=== PATIENT | female | born 1970 | race African-American/Black ===

== ENCOUNTER → 2017-02-25 | Outpatient (CLI) | payer BC ==
[~2017-02-25] MED LIST: LYSTEDA650 MG PO; PROVERA5 MG PO
--- NOTE | ~2017-02-25 | SLE ---
[facility] [address] [place] [address] POLYSOMNOGRAPHY STUDY Name: LO FELIX Room #: REG William ..#: [id number] Admission: 02/25/17 Attend Phys: Dylan Young MD Discharge: Date of : 70 Report #: [id number] THIS REPORT FOR: //name// CC: [facility] physician/PCP Dylan Young MD HISTORY OF PRESENT ILLNESS: A 46-year-old, height 4 feet 11 inches, weight 216 pounds. Usually goes to bed between 9:00 and 10:00, gets out of bed 6:30-7:00 a.m. Positive history of snoring. [place] sleepiness scale of 8. COMMENTS: No significant arrhythmia noted. Cough during the study. Total sleep time 347.5 minutes, sleep efficiency 80%. Sleep latency 15 minutes, REM latency 74 minutes. SLEEP STAGE: 1-7%, 2-76%, REM-17%. Central apnea 1, obstructive apnea 10, hypopnea 24. Apnea-hypopnea index of 6 events per sleep hour. Non-REM AHI 1.3, REM AHI 29 events per sleep hour. Supine AHI 7.2 events per sleep hour, left lateral 0, right lateral 6.6 events per sleep hour. Max heart rate 111. Periodic limb movement with arousal index of 1 event per sleep hour. Low oxygen saturation 69%, spending 1% of recording time less than 90%. IMPRESSION: 1. Obstructive sleep apnea/hypopnea with REM component. 2. Periodic limb movement with arousal index of 1 event per sleep hour. 3. Snoring noted. 4. No significant arrhythmia noted. SUGGESTIONS: 1. In addition to specific therapy, the patient should be cautioned regarding driving or operating dangerous machinery unless fully alert. The patient should be cautioned regarding the use of respiratory depressants. Weight loss and TSH per Dr. Young. 2. Oral appliance or appropriate surgery may be considered with appropriate followup. 3. A CPAP titration night or a home auto-titrating CPAP between 5 and 10 cm water pressure is initially recommended depending on the patient's clinical circumstances. 4. Further evaluation regarding etiology of snoring is recommended. 5. If signs and symptoms not improved with therapy, further evaluation [facility] [address] [place] [address] POLYSOMNOGRAPHY STUDY Name: LO FELIX Room #: REG [facility].#: [id number] Admission: 02/25/17 Attend Phys: Dylan Young MD Discharge: Date of : 70 Report #: [id number] recommended. Please do not hesitate to contact me if I may be of further assistance. By: 1859 02 Laura Arango MD /nt
== END ==
LOC: SLEEPLAB 11:53
DX: G47.33 Obstructive sleep apnea (adult) (pediatric) (principal); R06.83 Snoring